=== PATIENT | male | born 1965 | race Caucasian/White ===

== ENCOUNTER 2020-05-28 19:05 | Emergency (ER) | payer SELFPAY ==
[~2020-05-28] VITALS: Ht 165.1 cm; Wt 65.8 kg
--- NOTE | 2020-05-28 19:15 | NUR ---
PT 55 Y/O MALE BIB SELF FOR C/O INTERMITTENT CHEST PAIN X 2 WEEKS. PER PT, "I'VE HAD THIS ISSUE FOR THE PAST 3 YEARS BUT THE CP HAS BEEN WORSENING ON AND OFF FOR THE PAST 2 WEEKS." PT STATES CP IS STERNAL AND RADIAITED TO UPPER BACK AND L ARM. PER PT PAIN 5/10 AND FEELS LIKE A "PRESSURE." SKIN IS WARM AND DRY TO TOUCH, NON N/D/V. PT RESPIRATIONS ARE EVEN AND UNLABORED. PT ALSO ADMITS TO "FEELING STRESSED, AND I'VE BEEN DRINKING FOR THE PAST 2 WEEKS." PER PT HAS BEEN DRINKING 3-4 BEERS Q DAILY X 2 WEEKS. NO TREMORS NOTED. 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 VSS. MEDHX: DENIES ALLERGIES: DAMARIS
--- NOTE | 2020-05-28 19:15 | NUR ---
PT AMBUALTED TO BED 12 WITH STEADY GAIT. PT PLACED ON CARIDAC MONITOR.
--- NOTE | 2020-05-28 19:15 | NUR ---
Troy valle in ED - 05/28/20 at 1943 by [email or web address] CHRIS EVALUATING PT AT BEDSIDE.
--- NOTE | 2020-05-28 19:16 | NUR ---
EKG BEING PERFORMED AT BEDSIDE.
[2020-05-28 19:23] VITALS: BP 146/92
--- NOTE | 2020-05-28 19:30 | NUR ---
ERMD AT BEDSIDE EVALUATING PT.
--- NOTE | 2020-05-28 19:35 | NUR ---
IV PLACED IN [facility] 20. LABS COLLECTED.
[2020-05-28] MEDS ORDERED: ASPIRIN 325 MG TAB PO ONE (19:40)
--- NOTE | 2020-05-28 19:48 | NUR ---
PT STATES," I FEEL SO ANXIOUS, I THINK THATS WHAT'S MAKING ME FEEL WORSE." ERMD MADE AWARE AND GAVE NEW RX ORDER.
[2020-05-28] MEDS ORDERED: diphenhydrAMINE 50 MG/ML VIAL IVP ONE (19:50)
--- NOTE | 2020-05-28 20:00 | NUR ---
LABS PICKED UP BY LARRY PRASAD TECH.
--- NOTE | 2020-05-28 20:12 | NUR ---
XRAY AT BEDSIDE.
[2020-05-28 20:14] LABS: BASOPHILS # (AUTO) 0.2 K/uL (0.00-0.22); BASOPHILS % (AUTO) 3.7 % (0.0-2.0); EOSINOPHILS # (AUTO) 0.1 K/uL (0-0.4); EOSINOPHILS % (AUTO) 2.6 % (0.0-4.0); HEMATOCRIT 48.1 % (36-52); HEMOGLOBIN 16.4 g/dL (12.0-18.0); LYMPHOCYTES # (AUTO) 1.8 K/uL (2.0-11.5); LYMPHOCYTES % (AUTO) 41.3 % (20.5-51.1); MEAN CORPUSCULAR HEMOGLOBIN 33 pg (27-31); MEAN CORPUSCULAR HGB CONC 34 g/dL (33-37); MEAN CORPUSCULAR VOLUME 96.1 fL (80-94); MONOCYTES # (AUTO) 0.4 K/uL (0.8-1.0); NEUTROPHILS % (AUTO) 44.4 % (42.2-75.2); PLATELET COUNT (AUTO) 378 K/uL (140-450); RED BLOOD CELL COUNT(AUTO) 5.01 MIL/uL (4.20-6.10); RED CELL DISTRIBUTION WIDTH 14.7 % (11.6-13.7); WHITE BLOOD COUNT (AUTO) 4.4 K/uL (4.8-10.8)
[2020-05-28 20:22] LABS: ALBUMIN 4.4 g/dL (3.4-5.0); ANION GAP 21.3 (8-16); CARBON DIOXIDE 22.6 mmol/L (21-32); CREATININE 0.8 mg/dL (0.6-1.3); POTASSIUM 3.9 mmol/L (3.5-5.1); TOTAL BILIRUBIN 1.5 mg/dL (0.0-1.0)
--- NOTE | 2020-05-28 21:03 | NUR ---
IV removed, catheter intact and site benign. Applied folded 4x4 gauze and tape to stop bleeding.
[2020-05-28 21:05] VITALS: BP 117/81
--- NOTE | 2020-05-28 21:05 | NUR ---
Patient discharged with v/s stable. Written and verbal after care instructions given and explained. Patient alert, oriented and verbalized understanding of instructions. Ambulatory with steady gait. All questions addressed prior to discharge. ID band removed. Patient advised to follow up with PMD. Rx of PROTONIX given. Patient educated on indication of medication including possible reaction and side effects. Opportunity to ask questions provided and answered.
== END 2020-05-28 21:05 | disposition home or self-care (01) ==
LOC: MED 19:05
DX: R07.9 Chest pain, unspecified (principal); F10.99 Alcohol use, unspecified with unspecified alcohol-induced disorder
CPT/HCPCS: 36415; 71045; 80053; 83690; 84484; 85025; 93005; 96374; 99285; J1200; Q0092